=== PATIENT | male | born 1970 | race Asian ===

== ENCOUNTER 2017-02-25 14:46 | Emergency (ER) | payer OTHER ==
[2017-02-25] MEDS ORDERED: TETANUS/DIPHTHERIA/PERTUSSIS 0.5 ML SYRINGE IM ONE ×2 (15:52)
[2017-02-25] MEDS ORDERED: LIDOCAINE 2%-EPI 1:100000 20 ML MDV ONE (16:02)
== END 2017-02-25 16:19 | disposition home or self-care (01) ==
DX: S01.01XA Laceration without foreign body of scalp, initial encounter (principal); W45.0XXA Nail entering through skin, initial encounter; Y92.89 Other specified places as the place of occurrence of the external cause; Y99.0 Civilian activity done for income or pay; Z23 Encounter for immunization; I10 Essential (primary) hypertension

== ENCOUNTER 2017-03-12 15:54 | Emergency (ER) | payer OTHER | END 2017-03-12 16:10 | disposition home or self-care (01) | DX: S01.01XD Laceration without foreign body of scalp, subsequent encounter (principal); X58.XXXD Exposure to other specified factors, subsequent encounter; I10 Essential (primary) hypertension; R03.0 Elevated blood-pressure reading, without diagnosis of hypertension ==

== ENCOUNTER 2019-12-15 21:16 | Emergency (ER) | payer OTHER ==
[2019-12-15] MEDS ORDERED: PROPARACAINE 0.5% OPHTH DROPS 15 ML LEFTEYE STA (21:24)
[2019-12-15 21:25] VITALS: BP 162/78
[2019-12-15] MEDS ORDERED: ERYTHROMYCIN OPHTH OINT 1 GM TUBE LEFTEYE STA (21:33)
--- NOTE | 2019-12-15 21:34 | ED Physician Documentation ---
PD HPI OPHTHO - Stated complaint Stated Complaint: EYE PX - Chief complaint Chief Complaint: Heent - History obtained from History obtained from: Patient - History of Present Illness Timing - onset: Other (He thinks he may have gotten some raghavednra material or something while working outside today in his left eye. His vision is unaffected but he has a persistent left eye foreign body sensation which is quite uncomfortable.) Review of Systems Constitutional: reports: Reviewed and negative Ears: reports: Reviewed and negative PD PAST MEDICAL HISTORY - Past Medical History Cardiovascular: Hypertension - Past Surgical History Past Surgical History: No Ortho: Other - Present Medications Home Medications: Ambulatory Orders Medication Instructions Recorded Confirmed Erythromycin Base [Erythromycin 1 appful OP 5XD 7 Days #1 oint...g. 12/15/19 Ophthalmic Ointment] - Allergies Allergies/Adverse Reactions: Allergies Allergy/AdvReac Type Severity Reaction Status Date / Time No Known Drug Allergies Allergy Verified 05/02/14 17:19 - Social History Does the pt smoke?: No Smoking Status: Never smoker Does the pt drink ETOH?: No Does the pt have substance abuse?: No - Immunizations Immunizations are current?: Yes PD ED PE NORMAL - Vitals Vital signs reviewed: Yes - General General: Alert and oriented X 3, No acute distress - HEENT HEENT: PERRL, EOMI, Other (There is a superior corneal abrasion seen on fluorescein examination, no foreign body identified including in the upper fornices.) - Neck Neck: Supple, no meningeal sign, No bony TTP - Neuro Neuro: Alert and oriented X 3, 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 Negative Kathy sign. Eye was irrigated well anesthetized out of an abundance of caution even given the lack of identifiable foreign body. Departure - Departure Disposition: 01 Home, Self Care Clinical Impression: Corneal abrasion, left Qualifiers: Encounter type: initial encounter Qualified Code(s): S05.02XA - Injury of conjunctiva and corneal abrasion without foreign body, left eye, initial encounter Condition: Good Record reviewed to determine appropriate education?: Yes Instructions: ED Eye Injury Corneal Abrasion Follow-Up: Tigre Lyon MD [Provider Admit Priv/Credential] - (Thursday, if not better) Prescriptions: Erythromycin Base [Erythromycin Ophthalmic Ointment] 1 appful OP 5XD 7 Days #1 oint...g. Comments: I expect you to be better in the next 48 hours or so, return anytime if worse or if your vision is affected. Follow-up with the eye doctor on Thursday if not better.
== END 2019-12-15 21:40 | disposition home or self-care (01) ==
LOC: ED 21:16
DX: S05.02XA Injury of conjunctiva and corneal abrasion without foreign body, left eye, initial encounter (principal); X58.XXXA Exposure to other specified factors, initial encounter; Y93.H3 Activity, building and construction; Y99.0 Civilian activity done for income or pay; I10 Essential (primary) hypertension
CPT/HCPCS: 1040M; 99282; 99284; J3490

== ENCOUNTER 2021-08-17 16:57 | Observation (INO) | payer SELFPAY ==
[2021-08-17 17:48] LABS: BASOPHILS # (AUTO) 0.1 10^3/uL (0.0-0.1); BASOPHILS % (AUTO) 0.8 %; EOSINOPHILS # (AUTO) 0.1 10^3/uL (0.0-0.7); EOSINOPHILS % (AUTO) 0.6 %; HCT - HEMATOCRIT 48.5 % (42.0-52.0); LYMPHOCYTES # (AUTO) 1.4 10^3/uL (1.5-3.5); LYMPHOCYTES % (AUTO) 13.2 %; MEAN CORPUSCULAR HEMOGLOBIN 30.2 pg (27.0-31.0); MEAN CORPUSCULAR HGB CONC 35.1 g/dL (32.0-36.0); MEAN CORPUSCULAR VOLUME 86.1 fL (80.0-94.0); MEAN PLATELET VOLUME 9.8 fL (7.4-11.4); MONOCYTES # (AUTO) 0.7 10^3/uL (0.0-1.0); MONOCYTES % (AUTO) 6.5 %; NEUTROPHILS # (AUTO) 8.5 10^3/uL (1.5-6.6); NEUTROPHILS % (AUTO) 78.5 %; PLT - PLATELET COUNT 453 10^3/uL (130-450); RED BLOOD COUNT 5.63 10^6/uL (4.70-6.10); RED CELL DISTRIBUTION WIDTH 12.1 % (12.0-15.0); WHITE BLOOD COUNT 10.8 x10^3/uL (4.8-10.8)
[2021-08-17 17:52] LABS: VBG BASE EXCESS -0.4 mmol/L (-2 - +2); VBG HCO3 24.1 mmol/L (23-28); VBG PCO2 39.4 mmHg (41-51); VBG PH 7.404 (7.31-7.41); VBG PO2 31.1 mmHg (25-47); VBG TOTAL CO2 25.3 mmol/L (24-29)
[2021-08-17 17:53] LABS: KETONES, SERUM (ACETEST) NEGATIVE (NEGATIVE); VBG OXYGEN SATURATION 64.9 % (60-80)
[2021-08-17 18:17] LABS: BILIRUBIN,URINE NEGATIVE (NEGATIVE); CLARITY,URINE CLEAR (CLEAR); GLUCOSE, URINE (UA) >=1000 mg/dL (NEGATIVE); KETONES,URINE (UA) 40 mg/dL (NEGATIVE); LEUKOCYTE ESTERASE, URINE NEGATIVE (NEGATIVE); NITRITE,URINE NEGATIVE (NEGATIVE); OCCULT BLOOD,URINE NEGATIVE (NEGATIVE); PROTEIN,URINE NEGATIVE (NEGATIVE); UROBILINOGEN,URINE 0.2 (NORMAL) E.U./dL (NORMAL)
[2021-08-17 18:17] LABS: ALBUMIN 4.4 g/dL (3.2-5.5); ALKALINE PHOSPHATASE 105 IU/L (42-121); ALT ALANINE AMINOTRANSFERASE 30 IU/L (10-60); AST ASPARTATE AMINOTRANSFERASE 20 IU/L (10-42); BILIRUBIN,TOTAL 1.8 mg/dL (0.2-1.0); BUN - BLOOD UREA NITROGEN 17 mg/dL (6-20); CALCIUM 9.5 mg/dL (8.5-10.3); CARBON DIOXIDE - CO2 25 mmol/L (21-32); CHLORIDE 92 mmol/L (101-111); CREATININE 1.2 mg/dL (0.6-1.2); GFR - MDRD 64 (>89); LIPASE 51 U/L (22-51); MAGNESIUM 2.3 mg/dL (1.7-2.8); POTASSIUM 5.5 mmol/L (3.5-5.0); SODIUM 131 mmol/L (135-145); TOTAL PROTEIN 8.8 g/dL (6.7-8.2)
[2021-08-17 18:19] LABS: GLUCOSE 652 mg/dL (70-100)
[2021-08-17] MEDS ORDERED: ONDANSETRON 4 MG/2 ML VIAL IVP STA (18:24)
[2021-08-17] MEDS ORDERED: SODIUM CHLORIDE 0.9% 1,000 ML IV STA ×2 (18:24→19:17)
[2021-08-17] MEDS ORDERED: INSULIN REGULAR HUMAN 100 UNIT/1 ML 10 ML MDV IVP STA ×2 (18:27→19:17)
--- NOTE | 2021-08-17 18:27 | ED Physician Documentation ---
History of Present Illness - Stated complaint Stated Complaint: VOMITING - Chief complaint Chief Complaint: General - Additonal information Additional information: 51-year-old male presents the emergency department for evaluation of approxim ately 3 weeks of continuous daily vomiting. He reports has been unable to keep very little down. The vomiting stopped about 2 days ago but since then he has felt progressively dizzy, fatigue weak and tired. He is also endorsing bilateral blurry vision. He has had no syncopal episodes. He also endorses frequent urination. This gentleman has no pertinent past medical history though he admittedly has not seen a physician in many years. He is unsure of any FH for diabetes No tobacco, alcohol, or cannabis use. Takes no prescribed medications. Review of Systems Constitutional: denies: Fever, Chills Eyes: reports: Decreased vision Ears: reports: Reviewed and negative Nose: reports: Reviewed and negative Throat: reports: Reviewed and negative Cardiac: reports: Reviewed and negative Respiratory: reports: Reviewed and negative GI: denies: Abdominal Pain, Nausea, Vomiting : reports: Frequency Skin: denies: Rash, Lesions Musculoskeletal: denies: Neck pain, Back pain Neurologic: denies: Generalized weakness PD PAST MEDICAL HISTORY - Past Medical History Cardiovascular: Hypertension - Past Surgical History Past Surgical History: No Ortho: Other - Present Medications Home Medications: Ambulatory Orders Medication Instructions Recorded Confirmed Erythromycin Base [Erythromycin 1 appful OP 5XD 7 Days #1 oint...g. 12/15/19 Ophthalmic Ointment] - Allergies Allergies/Adverse Reactions: Allergies Allergy/AdvReac Type Severity Reaction Status Date / Time No Known Drug Allergies Allergy Verified 08/17/21 17:13 - Social History Does the pt smoke?: No Smoking Status: Never smoker Does the pt drink ETOH?: No Does the pt have substance abuse?: No - Immunizations Immunizations are current?: Yes PD ED PE EXPANDED - General General: Alert, Anxious - Cardiac Cardiac: Tachy, Radial strong equal, Pedal strong equal, Cap refill < 2 sec - Respiratory Respiratory: Clear to ausultation vikki. No: Distress, Labored - Abdomen Abdomen: Normal Bowel sounds. No: Tender to palpation - Derm Derm: Normal color, Warm and dry. No: Rash - Extremities Extremities: Normal. No: Deformity, Tenderness - Neuro Neuro: Alert and Oriented X 3, CNII-XII intact - GCS Eye Opening: Spontaneous Motor: Obeys Commands Verbal: Oriented Total: 15 Results - Vitals Vitals: Vital Signs - 24 hr 08/17/21 08/17/21 17:09 19:13 Temperature 36.8 C 36.7 C Heart Rate 121 H 108 H Respiratory 18 16 Rate Blood Pressure 170/102 H 154/88 H O2 Saturation 96 99 Oxygen O2 Source Room air - EKG (time done) 1823 Rate: Rate (enter#) (111) Rhythm: Sinus tachycardia [place]: Normal Intervals: Normal CT. No: Prolonged QT QRS: Normal Ischemia: Normal ST segments Compare to prior EKG: Old EKG unavailable Computer interpretation: Agree with computer - Labs Labs: Laboratory Tests 08/17/21 08/17/21 08/17/21 17:42 17:42 17:42 WBC 10.8 RBC 5.63 Hgb 17.0 Hct 48.5 MCV 86.1 MCH 30.2 MCHC 35.1 RDW 12.1 Plt Count 453 H MPV 9.8 Neut # (Auto) 8.5 H Lymph # (Auto) 1.4 L Door # (Auto) 0.7 Eos # (Auto) 0.1 Baso # (Auto) 0.1 Absolute Nucleated RBC 0.00 Nucleated RBC % 0.0 VBG pH VBG pCO2 VBG pO2 VBG HCO3 VBG Total CO2 VBG O2 Saturation VBG Base Excess Sodium 131 L Potassium 5.5 H Chloride 92 L Carbon Dioxide 25 Anion Gap 14.0 H BUN 17 Creatinine 1.2 Estimated GFR (MDRD) 64 L Glucose 652 H* POC Whole Bld Glucose Lactic Acid 2.2 Calcium 9.5 Magnesium 2.3 Total Bilirubin 1.8 H AST 20 ALT 30 Alkaline Phosphatase 105 Total Protein 8.8 H Albumin 4.4 Globulin 4.4 H Albumin/Globulin Ratio 1.0 Lipase 51 Urine Color Urine Clarity Urine pH Ur Specific [place] Urine Protein Urine Glucose (UA) Urine Ketones Urine Occult Blood Urine Nitrite Urine Bilirubin Urine Urobilinogen Ur Leukocyte Esterase Ur Microscopic Review Urine Culture Comments Serum Ketones NEGATIVE 08/17/21 08/17/21 08/17/21 17:42 17:48 19:11 WBC RBC Hgb Hct MCV MCH MCHC RDW Plt Count MPV Neut # (Auto) Lymph # (Auto) Door # (Auto) Eos # (Auto) Baso # (Auto) Absolute Nucleated RBC Nucleated RBC % VBG pH 7.404 VBG pCO2 39.4 L VBG pO2 31.1 VBG HCO3 24.1 VBG Total CO2 25.3 VBG O2 Saturation 64.9 VBG Base Excess -0.4 Sodium Potassium Chloride Carbon Dioxide Anion Gap BUN Creatinine Estimated GFR (MDRD) Glucose POC Whole Bld Glucose 474 H Lactic Acid Calcium Magnesium Total Bilirubin AST ALT Alkaline Phosphatase Total Protein Albumin Globulin Albumin/Globulin Ratio Lipase Urine Color YELLOW Urine Clarity CLEAR Urine pH 6.0 Ur Specific [place] 1.010 Urine Protein NEGATIVE Urine Glucose (UA) >=1000 H Urine Ketones 40 H Urine Occult Blood NEGATIVE Urine Nitrite NEGATIVE Urine Bilirubin NEGATIVE Urine Urobilinogen 0.2 (NORMAL) Ur Leukocyte Esterase NEGATIVE Ur Microscopic Review NOT INDICATED Urine Culture Comments NOT INDICATED Serum Ketones PD MEDICAL DECISION MAKING - ED course Complexity details: reviewed results, re-evaluated patient, d/w patient ED course: 51-year-old gentleman who has admittedly not sought medical care presents to the ED for 2-3 weeks of uncontrolled vomiting and urinary frequency. On presentation noted t be normotensive and very tachycardic. Initial screening chemistry showed blood glucose 652. serum ketones were negative and no acidosis. he had preserved renal function. Patient was initially given 2 L of IV fluid as well as a total of 15 units of insulin with resultant decrease in his blood glucose. He was feeling improved. However given the marked hyperglycemia is likely significantly dehydrated. I have presented this patient for admission to Dr. Moore who has agreed to admit on observation status. Further care to be dictated by the inpatient team. Patient agrees to admission status. Departure - Departure Disposition: ED Place in Observation Clinical Impression: Hyperglycemia, Dehydration Diabetes type 2, uncontrolled Qualifiers: Glycemic state: with hyperglycemia Qualified Code(s): E11.65 - Type 2 diabetes mellitus with hyperglycemia
[2021-08-17] MEDS ORDERED: ACETAMINOPHEN 325 MG TABLET PO PRN (19:55)
[2021-08-17] MEDS ORDERED: ONDANSETRON ODT 4 MG TABLET TL PRN (19:55)
[2021-08-17] MEDS ORDERED: SODIUM CHLORIDE FLUSH 0.9% 10 ML SYRINGE IVP PRN (19:55)
[2021-08-17] MEDS ORDERED: oxyCODONE 5 MG TABLET PO PRN (19:55)
[2021-08-17] MEDS ORDERED: ONDANSETRON 4 MG/2 ML VIAL IVP PRN (19:55)
[2021-08-17] MEDS: NS W/20 MEQ KCL 1,000 ML IV SCH (20:45)
[2021-08-17 21:02] LABS: B. PARAPERTUSSIS- RESP PCR PAN NOT DETECTED; B. PERTUSSIS- RESP PCR PANEL NOT DETECTED; C. PNEUMONIAE- RESP PCR PANEL NOT DETECTED; CORONAVIRUS 229E-RESP PCR NOT DETECTED; CORONAVIRUS HKU1-RESP PCR NOT DETECTED; CORONAVIRUS NL63-RESP PCR NOT DETECTED; CORONAVIRUS OC43-RESP PCR NOT DETECTED; HUMAN METAPNEUMOVIRUS NOT DETECTED; INFLUENZA A- RESP PCR PANEL NOT DETECTED; INFLUENZA B - RESP PCR PANEL NOT DETECTED; M. PNEUMONIAE- RESP PCR PANEL NOT DETECTED; PARAINFLUENZA VIRUS 1 NOT DETECTED; PARAINFLUENZA VIRUS 2 NOT DETECTED; PARAINFLUENZA VIRUS 3 NOT DETECTED; PARAINFLUENZA VIRUS 4 NOT DETECTED; RHINOVIRUS/ENTEROVIRUS NOT DETECTED; RSV- RESP PCR PANEL NOT DETECTED; SARS-CoV-2 -RESP PCR PANEL NOT DETECTED
[2021-08-17 21:45] LABS: CALCIUM 8.6 mg/dL (8.5-10.3); CREATININE 1.1 mg/dL (0.6-1.2); MAGNESIUM 2.1 mg/dL (1.7-2.8); POTASSIUM 4.4 mmol/L (3.5-5.0)
[2021-08-17] MEDS: INSULIN ASPART 300 UNIT/3 ML PEN SUBQ SCH (21:53)
--- NOTE | 2021-08-17 23:26 | HISTORY & PHYSICAL EXAMINATION ---
Chief Complaint - Chief Complaint Chief Complaint: Vomiting, abdominal pain History of Present Illness - Admitted From Admitted From:: Emergency Department - History Obtained From Records Reviewed: [facility] History obtained from: Patient - History of Present Illness HPI Comment/Other: 51 yo male with no past medical hx presented to the ED today with 3 weeks of nausea and abdominal pain. He also reported associated vision loss, increased thirst, and urination over the past month. Blood glucose was found to be 652, negative serum ketones, VBG showing no signs of acidosis. His lab work surprisingly shows no signs of dehydration with a normal Bun and Cr. He has reported no mental status changes. He was given fluids and insulin in the ED. He was admitted for observation for his hyperglycemia. In discussion with the patient he states that he does not have a regular doctor and has only been seen in the ED for an eye injury incurred at his work. He is unsure of his past medical history or any of his families past medical history. He reports he has had increased thirst and urination prior to his nausea,vomiting, and abd pain but can't remember when those symptoms started. His vision changes have been going on for about a month. On the floor the patients vital signs are stable. He is anxious to get back to work and worries about the cost associated with visiting a doctor He is open to meeting with social work tomorrow to discuss the resources available to him. History - Past Medical History Cardiovascular: reports: Hypertension (Unsure of HTN, but thinks he recalls someone saying that.) - Past Surgical History Ortho: reports: Other - Family & Social History Family History Comment/Other: Unsure of families medical problems. He currently is not in touch with his family and does not have a strong social support system. Living arrangement: At home Living Situation: Alone Social History Notes: Does not smoke tobacco, use recreational drugs, or drink ETOH.Unclear of living situation. Is living in a house alone. - Substance History Use: Uses substance without health or social issues: NONE - POLST Patient has POLST: No POLST Status: Full Code Meds/Allgy - Home Medications Home Medications: Ambulatory Orders Medication Instructions Recorded Confirmed No Known Home Medications 08/17/21 08/17/21 - Allergies Allergies/Adverse Reactions: Allergies Allergy/AdvReac Type Severity Reaction Status Date / Time No Known Drug Allergies Allergy Verified 08/17/21 17:13 Review of Systems - Constitutional Constitutional: reports: Fatigue (over the past month), Malaise (for the past month). denies: Fever - Eyes Eyes: reports: Blurred vision (No vision loss, but decreased vision quality described as blurry.). denies: Pain - Cardiovascular Cariovascular: denies: Irregular heart rate, Palpitations, Chest pain - Respiratory Respiratory: denies: Cough, Wheezing, SOB at rest - Gastrointestinal Gastrointestinal: reports: Abdominal pain (Has had abdominal pain past month. Described as gnawing or stabbing.), Nausea, Vomiting (Non bloody to his knowledge) - Genitourinary Genitourinary: reports: Frequency (Increased urinary frequency), Nocturia (Does report needing to get up in the middle of the night to urinate) - Integumentary Integumentary: denies: Rash, Lesions - Neurological Neurological: reports: Headache (intermittent headaches. None now). denies: Numbness (Denies numbness or tingling in extremities), Memory problems - Endocrine Endocrine: reports: Polyuria, Polydypsia Prior Level of Functionality: Independent. performs activities of daily living. Works for [employer]. Exam - Vital Signs Vital Signs: Vital Signs x48h Temp Pulse Pulse Resp BP BP Pulse Ox 08/17/21 20:36 37 C 92 24 167/91 H 98 08/17/21 19:13 36.7 C 108 H 16 154/88 H 99 08/17/21 17:09 36.8 C 121 H 18 170/102 H 96 - Physical Exam General Appearance: positive: No acute distress, Anxious (Worried about his condition), Other (Miss several teeth.) Eyes Bilateral: positive: PERRL, EOMI Neck: positive: No JVD, Trachea midline. negative: Lymphadenopathy (R), Lymphadenopathy (L) Respiratory: positive: Chest non-tender, Breath sounds nml Cardiovascular: positive: Regular rate & rhythm, No murmur, No gallop Peripheral Pulses: positive: 1+ Abdomen: positive: Non-tender, Nml bowel sounds. negative: Guarding, Rebound Skin: positive: Color nml Extremities: positive: Full ROM, Nml appearance, No pedal edema, Other (No foot ulcers. Diabetic foot exam normal.) Neurologic/Psychiatric: positive: Oriented x3, CN's nml (2-12), Motor nml, Sensation nml Conclusion/Plan - Problem List (1) Hyperglycemia Conclusion/Plan: This patients clinical presentation of nausea, vomiting, and abdominal pain with an elevated glucose of 652 is indicative of Hyperosmolar hyperglycemic syndrome. This is supported by the hyponatremia due to osmotic diuresis and no serum ketones that would indicate DKA. Furthermore over the past month he has had increased polyuria and polydipsia. He is not currently taking any medications that might cause this issue. He likely has Type 2 diabetes causing this. He fits risk factors for this including his age and obesity. At this time there are no signs of diabetic neuropathy, he has normal renal function, and he had a normal diabetic foot exam. Currently after receiving fluids and insulin his blood gl ucose is 387 which is down from 652. His vitals are stable. Will continue to give fluids and insulin to reduce his blood glucose level. Will continue to monitor his vital signs and blood sugar. Tomorrow he will need to be put on oral medication such as metformin and likely a secondary medication to control his glucose until he can see a primary care provider for further management. (2) Abdominal pain with vomiting Conclusion/Plan: The patients abdominal pain, nausea, vomiting are due to his HHS. Currently after receiving insulin, odansetron, and fluids he is feeling much better.He no longer has the abdominal pain or had any vomiting. He still feels slightly nauseas. He is not showing any peritoneal signs. He is does not have a fever or WBC indicating appendicitis or a gastritis. The lab values do not indicate the probable cause being cholecystitis. Will continue to give odansetron, fluids, and insulin to relieve his symptoms. Will continue to monitor blood sugar and his electrolytes to ensure adequate hydration. Will reassess symptoms in the morning. (3) Other specified health status Conclusion/Plan: This patients economical and social situation necessitates a follow up with social work. 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 Will make sure he is seen by social work in the AM. - Lab Results Fish Bones: 08/17/21 17:42 08/17/21 21:30 Other Lab Results: WBC 10.8 x10^3/uL (4.8-10.8) 08/17/21 17:42 RBC 5.63 10^6/uL (4.70-6.10) 08/17/21 17:42 Hgb 17.0 g/dL (14.0-18.0) 08/17/21 17:42 Hct 48.5 % (42.0-52.0) 08/17/21 17:42 MCV 86.1 fL (80.0-94.0) 08/17/21 17:42 MCH 30.2 pg (27.0-31.0) 08/17/21 17:42 MCHC 35.1 g/dL (32.0-36.0) 08/17/21 17:42 RDW 12.1 % (12.0-15.0) 08/17/21 17:42 Plt Count 453 10^3/uL (130-450) H 08/17/21 17:42 MPV 9.8 fL (7.4-11.4) 08/17/21 17:42 Neut # (Auto) 8.5 10^3/uL (1.5-6.6) H 08/17/21 17:42 Lymph # (Auto) 1.4 10^3/uL (1.5-3.5) L 08/17/21 17:42 [place] # (Auto) 0.7 10^3/uL (0.0-1.0) 08/17/21 17:42 Eos # (Auto) 0.1 10^3/uL (0.0-0.7) 08/17/21 17:42 Baso # (Auto) 0.1 10^3/uL (0.0-0.1) 08/17/21 17:42 Absolute Nucleated RBC 0.00 x10^3/uL 08/17/21 17:42 Nucleated RBC % 0.0 /100WBC 08/17/21 17:42 VBG pH 7.404 (7.31-7.41) 08/17/21 17:42 VBG pCO2 39.4 mmHg (41-51) L 08/17/21 17:42 VBG pO2 31.1 mmHg (25-47) 08/17/21 17:42 VBG HCO3 24.1 mmol/L (23-28) 08/17/21 17:42 VBG Total CO2 25.3 mmol/L (24-29) 08/17/21 17:42 VBG O2 Saturation 64.9 % (60-80) 08/17/21 17:42 VBG Base Excess -0.4 mmol/L (-2 - +2) 08/17/21 17:42 Sodium 136 mmol/L (135-145) 08/17/21 21:30 Potassium 4.4 mmol/L (3.5-5.0) 08/17/21 21:30 Chloride 101 mmol/L (101-111) 08/17/21 21:30 Carbon Dioxide 24 mmol/L (21-32) 08/17/21 21:30 Anion Gap 11.0 (6-13) 08/17/21 21:30 BUN 16 mg/dL (6-20) 08/17/21 21:30 Creatinine 1.1 mg/dL (0.6-1.2) 08/17/21 21:30 Estimated GFR (MDRD) 71 (>89) L 08/17/21 21:30 Glucose 387 mg/dL (70-100) H 08/17/21 21:30 POC Whole Bld Glucose 335 mg/dL (70 - 100) H 08/17/21 21:54 Lactic Acid 2.2 mmol/L (0.5-2.2) 08/17/21 17:42 Calcium 8.6 mg/dL (8.5-10.3) 08/17/21 21:30 Magnesium 2.1 mg/dL (1.7-2.8) 08/17/21 21:30 Total Bilirubin 1.8 mg/dL (0.2-1.0) H 08/17/21 17:42 AST 20 IU/L (10-42) 08/17/21 17:42 ALT 30 IU/L (10-60) 08/17/21 17:42 Alkaline Phosphatase 105 IU/L (42-121) 08/17/21 17:42 Total Protein 8.8 g/dL (6.7-8.2) H 08/17/21 17:42 Albumin 4.4 g/dL (3.2-5.5) 08/17/21 17:42 Globulin 4.4 g/dL (2.1-4.2) H 08/17/21 17:42 Albumin/Globulin Ratio 1.0 (1.0-2.2) 08/17/21 17:42 Lipase 51 U/L (22-51) 08/17/21 17:42 Urine Color YELLOW 08/17/21 17:48 Urine Clarity CLEAR (CLEAR) 08/17/21 17:48 Urine pH 6.0 PH (5.0-7.5) 08/17/21 17:48 Ur Specific [place] 1.010 (1.002-1.030) 08/17/21 17:48 Urine Protein NEGATIVE mg/dL (NEGATIVE) 08/17/21 17:48 Urine Glucose (UA) >=1000 mg/dL (NEGATIVE) H 08/17/21 17:48 Urine Ketones 40 mg/dL (NEGATIVE) H 08/17/21 17:48 Urine Occult Blood NEGATIVE (NEGATIVE) 08/17/21 17:48 Urine Nitrite NEGATIVE (NEGATIVE) 08/17/21 17:48 Urine Bilirubin NEGATIVE (NEGATIVE) 08/17/21 17:48 Urine Urobilinogen 0.2 (NORMAL) E.U./dL (NORMAL) 08/17/21 17:48 Ur Leukocyte Esterase NEGATIVE (NEGATIVE) 08/17/21 17:48 Ur Microscopic Review NOT INDICATED 08/17/21 17:48 Urine Culture Comments NOT INDICATED 08/17/21 17:48 Nasal Adenovirus (PCR) NOT DETECTED 08/17/21 20:00 Nasal B. parapertussis DNA (PCR) NOT DETECTED 08/17/21 20:00 Nasal Coronavir 229E PCR NOT DETECTED 08/17/21 20:00 Nasal Coronavir HKU1 PCR NOT DETECTED 08/17/21 20:00 Nasal Coronavir NL63 PCR NOT DETECTED 08/17/21 20:00 Nasal Coronavir OC43 PCR NOT DETECTED 08/17/21 20:00 Nasal Enterovir/Rhinovir PCR NOT DETECTED 08/17/21 20:00 Nasal Influenza B PCR NOT DETECTED 08/17/21 20:00 Nasal Influenza A PCR NOT DETECTED 08/17/21 20:00 Nasal Parainfluen 1 PCR NOT DETECTED 08/17/21 20:00 Nasal Parainfluen 2 PCR NOT DETECTED 08/17/21 20:00 Nasal Parainfluen 3 PCR NOT DETECTED 08/17/21 20:00 Nasal Parainfluen 4 PCR NOT DETECTED 08/17/21 20:00 Nasal RSV (PCR) NOT DETECTED 08/17/21 20:00 Nasal B.pertussis DNA PCR NOT DETECTED 08/17/21 20:00 Nasal C.pneumoniae (PCR) NOT DETECTED 08/17/21 20:00 Luis Enrique Human Metapneumo PCR NOT DETECTED 08/17/21 20:00 Nasal M.pneumoniae (PCR) NOT DETECTED 08/17/21 20:00 Nasal SARS-CoV-2 (PCR) NOT DETECTED 08/17/21 20:00 Serum Ketones NEGATIVE (NEGATIVE) 08/17/21 17:42 Core Measures - DVT/VTE - Prophylaxis VTE/DVT Device ordered at admit?: No Not Ordered - Medical Reason: Not indicated (Patient is ambulatory)
[2021-08-17] MEDS: SODIUM CHLORIDE FLUSH 0.9% 10 ML SYRINGE IVP SCH (23:58)
[2021-08-18] MEDS: NS W/20 MEQ KCL 1,000 ML IV SCH (06:08)
[2021-08-18 06:52] LABS: CALCIUM 8.2 mg/dL (8.5-10.3); CREATININE 0.8 mg/dL (0.6-1.2); POTASSIUM 4.5 mmol/L (3.5-5.0)
[2021-08-18] MEDS ORDERED: INSULIN ASPART 300 UNIT/3 ML PEN SUBQ SCH (08:00)
[2021-08-18] MEDS: INSULIN ASPART 300 UNIT/3 ML PEN SUBQ SCH ×4 (08:40→12:52)
[2021-08-18] MEDS: metFORMIN 850 MG TABLET PO SCH ×2 (08:42→12:51)
[2021-08-18] MEDS: SODIUM CHLORIDE FLUSH 0.9% 10 ML SYRINGE IVP SCH (08:43)
[2021-08-18 11:04] LABS: ESTIMATED AVERAGE GLUCOSE 321 mg/dL (70-100); HEMOGLOBIN A1c% 12.8 % (4.27-6.07)
--- NOTE | 2021-08-18 11:08 | PHARMACY PROGRESS NOTE ---
- Best Possible Medication History Admit Date and Time: 08/17/211954 Processed by: Pharmacy Medication History completed: Yes Patient Interview: Completed As the person ultimately responsible for medication therapy, providers are able to order a medication from an existing home medication list in [facility] via the "Reconcile Routine" prior to Confirmation of that medication by clerical and office support workers. Such practice is discouraged except when the physician, in their clinical tad gment, deems that a medical need exists for a medication without regard to previous use.
[2021-08-18] MEDS ORDERED: INSULIN ASPART 300 UNIT/3 ML PEN SUBQ ONE (11:25)
--- NOTE | 2021-08-18 11:33 | Discharge Plan ---
Discharge Plan Problem Reviewed?: Yes Disposition: Home, Self Care Condition: Stable Prescriptions: Blood-Glucose Meter [Glucometer] 1 each QID #1 each Blood Sugar Diagnostic [Glucometer Strips] 1 each QID #100 strip metFORMIN [Glucophage] 850 mg PO TIDWM #90 tablet Lancets 1 each QID #100 each Diet: Diabetic Activity Restrictions: Activity as Tolerated Shower Restrictions: No (fall precaution) Instruction Topics: Log Blood Sugar, Hyperglycemia, Hypoglycemia, Diabetes Resources, Diabetes Type 2 Coping, Blood Sugar Check, Diabetes Treat Minor Foot Infecs, Diabetes Treat Severe Foot Infecs, Diabetes Carbs, Diabetes Eating Out, Blood Sugar Manage Exercise, Metformin tablets Health Concerns: new diabetes Plan of Treatment: you are prescribed Metformin, Glucometer, strips and Lancets to help check and control of your diabetes. You may followup with diabetes education instructions, reduce your glucose intake, reduce your weight, and safely exercise, take new medication Metformin, check your glucose level, followup with your PCP closely to manage your diabetes. Care Goals: Stabilization and control your diabetes Assessment: Discussed the care plan in detail with you, answered your question, and you understood Additional Instructions or Follow Up instructions: You may follow-up with your PCP in 1 week, Keep hydration at home, control your glucose level. Should your symptoms Return or worsen, you may present to the ER or call 911 for help Follow-Up Care: [facility] - Diabetes Ed No Smoking: If you smoke, Please STOP! Call for help.
--- NOTE | 2021-08-18 11:44 | DISCHARGE SUMMARY ---
Discharge Summary Admit Date: 08/17/21 Discharge Date: 08/18/21 Discharging Provider: Taiwo Bo Condition at Discharge: Stable Discharge Disposition: 01 Home, Self Care Discharge Facility Name: home - DIAGNOSES Discharge Diagnoses with Status of Each Condition: (1) Hyperglycemia resolved. pt has 109 glucose at the d/c. pt had an elevated glucose of 652 at admission. pt had A1C 12.8, new diagnosis of Diabetes. pt is prescribed Metformin, glucometer, strips and lancets. healthcare social worker help to find PCP for pt. (2)diabetes pt had A1C 12.8, new diagnosis of Diabetes to pt. pt was unknown he is diabetes. pt is prescribed Metformin, glucometer, strips and lancets. healthcare social worker help to find PCP for pt. pt may followup with PCP continue management of his diabetes. (3) Abdominal pain with vomiting resolved. pt denies abdominal pain, nausea or vomiting any more. pt tolerate diet. pt request to be d/c on today. it is likely caused by uncontrolled diabetes. - HPI History of Present Illness: refer from Mr. Lim's HPI on 08/17/21 51 yo male with no past medical hx presented to the ED today with 3 weeks of nausea and abdominal pain. He also reported associated vision loss, increased thirst, and urination over the past month. Blood glucose was found to be 652, negative serum ketones, VBG showing no signs of acidosis. His lab work surprisingly shows no signs of dehydration with a normal Bun and Cr. He has reported no mental status changes. He was given fluids and insulin in the ED. He was admitted for observation for his hyperglycemia. In discussion with the patient he states that he does not have a regular doctor and has only been seen in the ED for an eye injury incurred at his work. He is unsure of his past medical history or any of his families past medical history. He reports he has had increased thirst and urination prior to his nausea,vomiting, and abd pain but can't remember when those symptoms started. His vision changes have been going on for about a month. On the floor the patients vital signs are stable. He is anxious to get back to work and worries about the cost associated with visiting a doctor He is open to meeting with social work tomorrow to discuss the resources available to him. - HOSPITAL COURSE Hospital Course: Patient was admitted for nausea vomiting and abdominal pain. Patient was found to have severe hyperglycemia. Patient's A1c is 12.8. Patient was unknown he is d iabetic. Pt's serum ketone is negative. Patient was given intravenous IV fluids, Insulin. Then patient's symptoms was resolved, patient tolerated diet, his glucose is 109 at the d/c. Because this is a new diagnosis of diabetic to pt, Patient is prescribed Metformin for discharge to home, patient is also prescribed glucometer, strips, lancets. Patient had extensive diabetic education at hospital. Social work to help patient find PCP to continue manage patient diabetes. - ALLERGIES Allergies/Adverse Reactions: Allergies Allergy/AdvReac Type Severity Reaction Status Date / Time No Known Drug Allergies Allergy Verified 08/17/21 17:13 - MEDICATIONS Home Medications: Ambulatory Orders Medication Instructions Recorded Confirmed Blood Sugar Diagnostic [Glucometer 1 each MC QID #100 strip 08/18/21 Strips] Blood-Glucose Meter [Glucometer] 1 each QID #1 each 08/18/21 Lancets 1 each QID #100 each 08/18/21 metFORMIN [Glucophage] 850 mg PO TIDWM #90 tablet 08/18/21 - PHYSICAL EXAM AT DISCHARGE General Appearance: positive: No acute distress, Alert. negative: Lethargic Eyes Bilateral: positive: Normal inspection, No lid inflammation ENT: positive: ENT inspection nml, No signs of dehydration. negative: Purulent nasal drainage Neck: positive: Nml inspection, Trachea midline. negative: Thyromegaly, Tracheal deviation Respiratory: positive: Chest non-tender, No respiratory distress, Breath sounds nml. negative: Wheezes Cardiovascular: positive: Regular rate & rhythm, No murmur. negative: Tachycardia, Bradycardia, Systolic murmur, Diastolic murmur Peripheral Pulses: positive: 2+ Abdomen: positive: Non-tender, Nml bowel sounds, No distention. negative: Tenderness Skin: positive: Color nml, Warm, Dry. negative: Cyanosis Extremities: positive: Non-tender, Full ROM, Nml appearance. negative: Calf tenderness Neurologic/Psychiatric: positive: Oriented x3, Motor nml, Sensation nml, Mood/affect nml. negative: Weakness, Sensory loss, Facial droop, Slurred/abnml speech, Depressed mood/affect - LABS Result Diagrams: 08/17/21 17:42 08/18/21 06:13 - FOLLOW UP Follow Up: you are prescribed Metformin, Glucometer, strips and Lancets to help check and control of your diabetes. You may followup with diabetes education instructions, reduce your glucose intake, reduce your weight, and safely exercise, take new medication Metformin, check your glucose level, followup with your PCP closely to manage your diabetes. You may follow-up with your PCP in 1 week, Keep hydration at home, control your glucose level. Should your symptoms Return or worsen, you may present to the ER or call 911 for help - TIME SPENT Time Spent in Discharge (Minutes): 30
[2021-08-18 12:36] VITALS: BP 110/56
[2021-08-18] MEDS ORDERED: INSULIN GLARGINE 300 UNIT/3 ML PEN SUBQ SCH (21:00)
== END 2021-08-18 13:35 | disposition home or self-care (01) ==
LOC: ED 16:57 → MS2 19:55
PROVIDERS: ADMIT Specialist; ATTEND Specialist
DX: E11.65 Type 2 diabetes mellitus with hyperglycemia (principal); Z20.822 Contact with and (suspected) exposure to COVID-19
CPT/HCPCS: 0202U; 36415; 80048; 80053; 81003; 82009; 82803; 83036; 83605; 83690; 83735; 85025; 93005; 96361; 96374; 99284; 99285; A9270; G0378; J1815; 81001; 87086

== ENCOUNTER 2024-06-16 18:47 | Outpatient (CLI) | payer OTHER ==
--- NOTE | 2024-06-17 15:39 | XRAY Report ---
PROCEDURE: Lumbar Spine 2-3V INDICATIONS: STRAIN OF MUSCLE TECHNIQUE: 2 views of the lumbar spine were acquired. COMPARISON: None. FINDINGS: Surgical change: None. Bones: 5 [id number] vertebrae are present. There is normal bony alignment. No vertebral body co mpression fractures. Disc space narrowing at L5-S1 noted. This impresses disc space narrowing also se en at L1-L2 and T12-L1 Soft tissues: Overlying bowel gas pattern is normal. Phleboliths project over the pelvis. IMPRESSION: Disc space narrowing especially at L5-S1 Reviewed by: Darnell Gamez MD on 06/17/2024 3:38 PM PDT Approved by: Darnell Gamez MD on 06/17/2024 3:38 PM PDT Station ID: [id number]
== END 2024-06-16 18:48 | disposition home or self-care (01) ==
LOC: DI 18:47
PROVIDERS: ATTEND Family Medicine
DX: S39.012A Strain of muscle, fascia and tendon of lower back, initial encounter (principal); M48.07 Spinal stenosis, lumbosacral region; M48.061 Spinal stenosis, lumbar region without neurogenic claudication; M48.05 Spinal stenosis, thoracolumbar region

== ENCOUNTER 2024-06-18 02:03 | Outpatient (CLI) | payer OTHER | END 2024-06-18 02:04 | disposition critical access hospital (66) | LOC: EMS 02:03 | DX: M54.50 Low back pain, unspecified (principal); W17.89XA Other fall from one level to another, initial encounter; W17.2XXA Fall into hole, initial encounter; Y92.61 Building [any] under construction as the place of occurrence of the external cause; Y99.0 Civilian activity done for income or pay | CPT/HCPCS: A0425; A0429 ==

== ENCOUNTER 2024-06-18 02:24 | Emergency (ER) | payer OTHER ==
--- NOTE | 2024-06-18 02:34 | ED Physician Documentation ---
PD HPI Fall - Stated complaint Stated Complaint: FELL, RT LOWER BACK PAIN - History obtained from History obtained from: Patient, EMS - History of Present Illness Mechanism of injury: Other (3 days ago, fell at work site into a hole or between board and struck back/flank area. Pain thoracollumbar and flank. Seen at Walk in and had xray lumbar spine without acute findings. Rx muscle relaxant. Pain worse.) Fall distance: Standing position Where injury occurred: Work Timing - onset: How many days ago (3) Injury(ies) location: Back Associated symptoms: No: LOC, AMS Review of Systems Respiratory: reports: Dyspnea : denies: Hematuria Skin: denies: Abrasion (s), Laceration (s) Neurologic: denies: Focal weakness, Numbness PD PAST MEDICAL HISTORY - Past Medical History Cardiovascular: Hypertension (Unsure of HTN, but thinks he recalls someone saying that.) - Past Surgical History Past Surgical History: No Ortho: Other - Present Medications Home Medications: Ambulatory Orders Medication Instructions Recorded Confirmed Blood Sugar Diagnostic [Glucometer 1 each QID #100 strip 08/18/21 Strips] Blood-Glucose Meter [Glucometer] 1 each QID #1 each 08/18/21 Lancets 1 each QID #100 each 08/18/21 metFORMIN [Glucophage] 850 mg PO TIDWM #90 tablet 08/18/21 Lidocaine Patch 5% [Lidoderm Patch] 1 patch TOP DAILY PRN #10 patch 06/18/24 Meloxicam [Mobic] 7.5 mg PO BID 10 Days #20 tablet 06/18/24 Oxycodone HCl/Acetaminophen 1 each PO Q6H PRN #20 tablet 06/18/24 [Percocet 5-325 mg Tablet] - Allergies Allergies/Adverse Reactions: Allergies Allergy/AdvReac Type Severity Reaction Status Date / Time No Known Drug Allergies Allergy Verified 08/17/21 17:13 - Social History Does the pt smoke?: No Smoking Status: Never smoker Does the pt drink ETOH?: No Does the pt have substance abuse?: No - Immunizations Immunizations are current?: Yes - POLST Patient has POLST: No POLST Status: Full Code PD ED PE NORMAL - Vitals Vital signs reviewed: Yes - General General: Alert and oriented X 3, Well developed/nourished, Other (appears in pain right flank/lower ribs area. ) - Neck Neck: Supple, no meningeal sign, No adenopathy - Cardiac Cardiac: RRR, No murmur - Respiratory Respiratory: No respiratory distress, Clear bilaterally - Abdomen Abdomen: Soft, Non tender - Back Back: Other (tender right flank and lower ribs in mid scapular line. Bruising and swelling subcut with tenderness right flank area. ) - Derm Derm: Normal color (generally good color. Bruising noted right flank. ), Warm and dry - Neuro Neuro: Alert and oriented X 3, No motor deficit, No sensory deficit, Normal speech Results - Vitals Vitals: Oxygen O2 Source Room air - Labs Labs: Laboratory Tests 06/18/24 06/18/24 06/18/24 02:40 02:40 03:38 WBC 7.7 RBC 5.09 Hgb 14.7 Hct 43.8 MCV 86.1 MCH 28.9 MCHC 33.6 RDW 12.6 Plt Count 317 MPV 8.7 Neut # (Auto) 5.8 Lymph # (Auto) 1.3 L [place] # (Auto) 0.4 Eos # (Auto) 0.1 Baso # (Auto) 0.1 Absolute Nucleated RBC 0.00 Nucleated RBC % 0.0 Sodium 137 Potassium 3.6 Chloride 104 Carbon Dioxide 28 Anion Gap 5.0 L BUN 8 Creatinine 0.8 Estimated GFR (MDRD) 101 Glucose 183 H Calcium 8.8 Total Bilirubin 1.7 H AST 11 ALT 12 Alkaline Phosphatase 69 Total Protein 7.0 Albumin 3.7 Globulin 3.3 Albumin/Globulin Ratio 1.1 Lipase 19 Urine Color YELLOW Urine Clarity CLEAR Urine pH 6.5 Ur Specific Ethel 1.015 Urine Protein NEGATIVE Urine Glucose (UA) 100 H Urine Ketones NEGATIVE Urine Occult Blood TRACE-INTA Urine Nitrite NEGATIVE Urine Bilirubin NEGATIVE Urine Urobilinogen 0.2 (NORMAL) Ur Leukocyte Esterase NEGATIVE Ur Microscopic Review NOT INDICATED Urine Culture Comments NOT INDICATED - Rads (name of study) abd CT Relevant Findings:: Prelim report reviewed (Right mid scapular fractures rib 11 and 12. Small pleural effusion in that area. Hematoma noted subcutaneous. No kidney or liver injury.), EMP independent interpretation of test PD Medical Decision Making - ED course Complexity details: reviewed results (no organ injury of kidney nor liver. lower 2 rib fractures and small pleural effusion, no pneumothorax, but consider hemothorax. ), re-evaluated patient (pain improved reasonably with IV meds. ), considered differential (He had injury to the lower ribs and flank area. Lumbar x-ray done from the walk-in did not show any abnormalities. This likely misses target and I be concerned for kidney or liver injury as well as lower lung. CT was discussed and agreed by the patient.), d/w patient Departure - Departure Disposition: 01 Home, Self Care Clinical Impression: Fracture, ribs, Pleural effusion, Right flank hematoma Condition: Stable Record reviewed to determine appropriate education?: Yes Instructions: ED Fx Rib, ED Hematoma Prescriptions: Lidocaine Patch 5% [Lidoderm Patch] 1 patch TOP DAILY PRN #10 patch PRN Reason: pain Meloxicam [Mobic] 7.5 mg PO BID 10 Days #20 tablet Oxycodone HCl/Acetaminophen [Percocet 5-325 mg Tablet] 1 each PO Q6H PRN #20 tablet PRN Reason: pain Comments: In addition to the bruising you have in your flank area which presumably is from muscle injury and localized bleeding, there is also seen on your CT scan little bit of fluid around the lung on the lower right (presumably a small amount of blood as well) associated with 2 broken ribs. The 2 broken ribs of the lower right ones 11 and 12. There are nondisplaced and should heal up okay with time. There typically is considerable improvement in rib fractures over the first couple of weeks but a good 4 to 6 weeks before he would say they are healed together. No organ injury is seen on your scan such as liver or kidney. I would suggest a combination of the local treatments you have been doing such as a lidocaine patch or Salonpas. You could do some heat or warm towels to the area to help reduce spasming and stiffness of the muscles. You can continue the muscle relaxant previously prescribed though that does not really help with the pain of the rib fractures per se. To help with that, I would suggest some anti-inflammatories. I wrote for meloxicam twice daily for the next 10 days. To that add Tylenol 500 to 650 mg 4 times daily regularly over the next week as well. Add oxycodone/acetaminophen if needed for worse pains. We did send you home with 4 tablets since pharmacies are closed at this time. I sent prescriptions to [facility] pharmacy for other medicines. Light duty you are off work for several more days to week. Follow-up with your primary care if not improved well further still in the next week or so and resolved by 4 to 6 weeks. I am prescribing a short course of narcotic pain medication for you. These are potentially dangerous and addictive medications that should be used carefully. These medications may constipate you. Take an [id number] stool softener such as docusate twice daily with plenty of water while taking these medications. If you go 24 hours without a bowel movement, take [id number] MiraLAX, per package instructions. Do not drink or drive while taking these medications. If you received narcotic or sedating medications while in the emergency department do not drive for 24 hours. Store this medication in a safe, secure place and out of reach of children. It is a violation of federal law to give or sell this medication to another person or to use in a manner other than prescribed. The ED will not refill narcotic prescriptions, including prescriptions lost or stolen. You can dispose of unwanted medications at the [facility]'s office or at several pharmacies such as [facility]. Discharge Date/Time: 06/18/24 05:30
[2024-06-18] MEDS: SODIUM CHLORIDE 0.9% 1,000 ML IV STA (02:40)
[2024-06-18] MEDS ORDERED: KETOROLAC 30 MG/ML VIAL ONE (02:43)
[2024-06-18] MEDS: HYDROmorphone 1 MG/ML CARPUJECT IVP STA ×2 (02:44→03:58)
[2024-06-18] MEDS: KETOROLAC 15 MG/ML VIAL IVP STA (02:45)
[2024-06-18] MEDS ORDERED: iohexoL-300 100 ML VIAL ONE (02:48)
[2024-06-18 03:04] LABS: ALBUMIN 3.7 g/dL (3.2-5.5); ALBUMIN/GLOBULIN RATIO 1.1 (1.0-2.2); BILIRUBIN,TOTAL 1.7 mg/dL (0.2-1.0); CALCIUM 8.8 mg/dL (8.5-10.3); CREATININE 0.8 mg/dL (0.6-1.3); POTASSIUM 3.6 mmol/L (3.5-4.5)
[2024-06-18] MEDS: iohexoL-300 100 ML VIAL IVP ONE (03:40)
[2024-06-18 03:49] LABS: BILIRUBIN,URINE NEGATIVE (NEGATIVE); CLARITY,URINE CLEAR (CLEAR); GLUCOSE, URINE (UA) 100 mg/dL (NEGATIVE); KETONES,URINE (UA) NEGATIVE (NEGATIVE); LEUKOCYTE ESTERASE, URINE NEGATIVE (NEGATIVE); NITRITE,URINE NEGATIVE (NEGATIVE); OCCULT BLOOD,URINE TRACE-INTA (NEGATIVE); PH,URINE 6.5 PH (5.0-7.5); PROTEIN,URINE NEGATIVE (NEGATIVE); UROBILINOGEN,URINE 0.2 (NORMAL) E.U./dL (NORMAL)
[2024-06-18 04:34] LABS: BASOPHILS # (AUTO) 0.1 10^3/uL (0.0-0.1); BASOPHILS % (AUTO) 0.8 %; EOSINOPHILS # (AUTO) 0.1 10^3/uL (0.0-0.7); EOSINOPHILS % (AUTO) 1.7 %; HCT - HEMATOCRIT 43.8 % (42.0-52.0); HGB - HEMOGLOBIN 14.7 g/dL (14.0-18.0); LYMPHOCYTES # (AUTO) 1.3 10^3/uL (1.5-3.5); LYMPHOCYTES % (AUTO) 16.6 %; MEAN CORPUSCULAR HEMOGLOBIN 28.9 pg (27.0-31.0); MEAN CORPUSCULAR HGB CONC 33.6 g/dL (32.0-36.0); MEAN CORPUSCULAR VOLUME 86.1 fL (80.0-94.0); MEAN PLATELET VOLUME 8.7 fL (7.4-11.4); MONOCYTES # (AUTO) 0.4 10^3/uL (0.0-1.0); MONOCYTES % (AUTO) 5.6 %; NEUTROPHILS # (AUTO) 5.8 10^3/uL (1.5-6.6); PLT - PLATELET COUNT 317 10^3/uL (130-450); RED BLOOD COUNT 5.09 10^6/uL (4.70-6.10); RED CELL DISTRIBUTION WIDTH 12.6 % (12.0-15.0); WHITE BLOOD COUNT 7.7 x10^3/uL (4.8-10.8)
[2024-06-18] MEDS: oxyCODONE/ACET 5/325 Prepack 4 PO STA (05:27)
[2024-06-18 05:34] VITALS: BP 186/93; O2SAT 96
--- NOTE | 2024-06-18 08:56 | CT Report ---
PROCEDURE: Abdomen/Pelvis W INDICATIONS: fall Tues; pain still right flank/bruising CONTRAST: 100 ML OMNI 300 TECHNIQUE: After the administration of intravenous contrast, a CT scan of the abdomen and pelvis was performed. Images were recorded and evaluated at appropriate window settings. Reformats: coronal and sagittal. F or radiation dose reduction, the following was used: automated exposure control, adjustment of mA and /or kV according to patient size. COMPARISON: Correlation is made with lumbar spine plain films, 06/16/2024. FINDINGS: Image quality: Diagnostic. Lower chest: There is a small right-sided pleural effusion. Mild atelectasis can be seen at both lung bases. Heart size is at the upper limits of normal. A small hiatal hernia is incidentally noted. Liver: No solid mass. The liver is enlarged, with the left lobe of the liver extending lateral to the spleen. Mild generalized fatty liver infiltration can be seen. Gallbladder: Within normal limits. Biliary tree: No intrahepatic or extrahepatic dilation, accounting for age. Spleen: No splenomegaly. Pancreas: No pancreatic ductal dilation. Adrenals: No adrenal nodule. Kidneys and ureters: No perinephric fatty stranding can be seen. No renal laceration. No hydronephros is. No renal cystic lesion which requires follow up. No solid mass. Stomach, bowel and peritoneum: No gastric or small bowel dilation. No abnormal wall thickening. No pa thologic free fluid. Lymph nodes: No central or retroperitoneal adenopathy. Vessels: No infrarenal aortic aneurysm. Patent portal vein. PELVIS Reproductive organs: Unremarkable. Bladder: No abnormal wall thickening, accounting for underdistention. Pelvic lymph nodes: No pelvic adenopathy by size criteria. Bones: There are mildly displaced right posterior 11th and 12th rib fractures, as seen on series 4 im age 89. No aggressive osseous abnormality. Focal L5-S1 degenerative change is seen. Milder degenerative changes are seen elsewhere. Other: No significant ventral or inguinal hernia. IMPRESSION: Mildly displaced right posterior 11th and 12th rib fractures. No underlying acute kidney abnormality can be seen. There is a small right-sided pleural effusion. Additional findings: Heart size at the upper limits of normal Enlarged, fatty infiltrated liver Focal L5-S1 degenerative change Note: No significant discrepancy from the preliminary report. Reviewed by: Ethan Espino MD on 06/18/2024 7:55 AM AKDT Approved by: Ethan Espino MD on 06/18/2024 7:55 AM GERM[facility]N Station ID: [id number]
== END 2024-06-18 05:30 | disposition home or self-care (01) ==
LOC: EDUNIT# → ED 02:24
DX: S22.41XA Multiple fractures of ribs, right side, initial encounter for closed fracture (principal); J90 Pleural effusion, not elsewhere classified; S30.1XXA Contusion of abdominal wall, initial encounter; W19.XXXA Unspecified fall, initial encounter; Y99.0 Civilian activity done for income or pay; Z79.84 Long term (current) use of oral hypoglycemic drugs; Z79.899 Other long term (current) drug therapy
CPT/HCPCS: 36415; 74177; 80053; 81003; 83690; 85025; 96374; 96375; 96376; 99284; J1170; Q9967; 81001; 87086